=== PATIENT | female | born 1940 | race Caucasian/White ===

== ENCOUNTER 2017-02-23 06:09 | Day surgery (SDC) | payer OTHER ==
[~2017-02-23] VITALS: Ht 165.1 cm; Wt 66.7 kg
[~2017-02-23 06:09] MED LIST: ALTACE5 MG PO; ATIVAN1 MG PO; B COMPLETE1 EACH PO; CALCIUM 600 +1 EA16 PO; CARVEDILOL6.25 MG PO; CELEXA20 MG PO; COREG3.125 M1 PO; COUMADIN2.5 MG PO; COZAAR50 MG PO; CRESTOR5 MG PO; CYMBALTA20 MG PO; ERGOCALCIF50000 UNIT PO; FLONASE16 G1 BOTH NARES; LIPITOR40 MG PO; NITROFURANTOIN100 MG PO; ONE DAILY FOR1 EAC3 PO; PLAVIX75 MG PO; PRILOSEC OTC20 MG PO; PROLIA60 MG/1 ML SC; ST. JOSEPH ASPI81 MG PO
[2017-02-23 08:00] VITALS: BP 150/66
[2017-02-23 16:26] VITALS: BP 173/86
[2017-02-23 17:52] VITALS: BP 178/75
== END 2017-02-23 18:35 | disposition home or self-care (01) ==
LOC: SDC 06:09 → NUC 08:30 → SDC 08:30
PROC: BH41ZZZ Ultrasonography of Left Breast (ICD-10-PCS; principal; 2017-02-23)
PROC: 0HBU0ZZ Excision of Left Breast, Open Approach (ICD-10-PCS; principal; 2017-02-23)
DX: C50.912 Malignant neoplasm of unspecified site of left female breast (principal); I10 Essential (primary) hypertension; E03.9 Hypothyroidism, unspecified; F32.9 Major depressive disorder, single episode, unspecified; Z85.3 Personal history of malignant neoplasm of breast; Z88.0 Allergy status to penicillin; Z86.73 Personal history of transient ischemic attack (TIA), and cerebral infarction without residual deficits; Z79.82 Long term (current) use of aspirin; Z80.3 Family history of malignant neoplasm of breast; Z80.0 Family history of malignant neoplasm of digestive organs; Z82.49 Family history of ischemic heart disease and other diseases of the circulatory system; Z80.41 Family history of malignant neoplasm of ovary
CPT/HCPCS: 78195; 78999; 88305; 88307; A9541; J0131; J0690; J1100; J1170; J1200; J1885; J2250; J2405; J3010; J7050

== ENCOUNTER 2017-05-08 11:04 | Day surgery (SDC) | payer OTHER ==
[~2017-05-08] VITALS: Ht 165.1 cm; Wt 66.2 kg
[~2017-05-08 11:04] MED LIST changes: +KEFLEX500 MG PO
[2017-05-08 11:46] VITALS: BP 135/68
[2017-05-08] MEDS ORDERED: TORADOL10 MG PO (15:17)
[2017-05-08] MEDS ORDERED: PERCOCET 5/31 TABLET PO (15:17)
[2017-05-08 15:50] VITALS: BP 181/77
[2017-05-08 16:45] VITALS: BP 159/77
== END 2017-05-08 16:56 | disposition home or self-care (01) ==
LOC: SDC 11:04
PROC: 0HBU0ZZ Excision of Left Breast, Open Approach (ICD-10-PCS; principal; 2017-05-08)
DX: C50.912 Malignant neoplasm of unspecified site of left female breast (principal); E04.2 Nontoxic multinodular goiter; I10 Essential (primary) hypertension; E03.9 Hypothyroidism, unspecified; Z79.82 Long term (current) use of aspirin; Z79.02 Long term (current) use of antithrombotics/antiplatelets; Z88.0 Allergy status to penicillin; Z86.73 Personal history of transient ischemic attack (TIA), and cerebral infarction without residual deficits; Z80.41 Family history of malignant neoplasm of ovary; Z80.0 Family history of malignant neoplasm of digestive organs
CPT/HCPCS: 88305; 88307; J0131; J0690; J1100; J1170; J1885; J2405; J3010; J7050; Q0175